=== PATIENT | male | born 1965 | race African-American/Black ===

== ENCOUNTER 2023-07-24 21:41 | Emergency (ER) | payer SELFPAY ==
[~2023-07-24] VITALS: Ht 182.9 cm; Wt 94.0 kg
[2023-07-24 22:04] VITALS: BP 130/76; PULSE 92; RESP 18; TEMP 98.1; O2SAT 100
== END 2023-07-24 22:31 | disposition home or self-care (01) ==
LOC: ER 21:41
DX: L53.9 Erythematous condition, unspecified (principal); J44.9 Chronic obstructive pulmonary disease, unspecified; Z93.3 Colostomy status; Z85.9 Personal history of malignant neoplasm, unspecified
CPT/HCPCS: 99281; Z7610